=== PATIENT | female | born 1975 | race Caucasian/White ===

== ENCOUNTER 2020-09-16 01:31 | Outpatient (CLI) | payer OTHER, SELFPAY ==
--- NOTE | 2020-09-16 | DI.MRI_ITS ---
Exam(s) MR LUMBAR SPINE WO EXAM: MR LUMBAR SPINE WO CLINICAL HISTORY: LT SIDED SI AND BACK PAIN WITH RADICULOPATHY,FAILED PT,PREVIOUS BACK SURGER. TECHNIQUE: Multiplanar multisequence MRI of the Lumbar spine was performed. COMPARISON: MR MRI - LUMBAR SPINE WO CONTRAST from 02/13/2014 MR MRI - LUMBAR SPINE WO CONTRAST from 02/13/2014 FINDINGS: There are no plain films of the lumbar spine available time this MRI interpretation and therefore 5 l umbar vertebrae are presumed. Conus medullaris is at normal level. There is no evidence of conus mass nor subjacent clumping of in trathecal nerve roots to suggest arachnoiditis. The distal thecal sac appears unremarkable.There is no evidence of Tarlov intrasacral cysts nor other significant findings within the sacral canal Bones:There are no fractures nor ominous osseous lesions in the lumbar vertebral bodies and visualize d sacrum. With respect to the individual levels... T12-L1: Unremarkable L1-2: Normal disc height and signal. No disc herniation nor central canal stenosis.No foraminal steno sis L2-3: Normal disc height. No disc herniation nor central canal stenosis.No foraminal stenosis.No face t arthropathy. L3-4: Normal disc height. No disc herniation or central canal stenosis.No foraminal stenosis.No face t arthropathy. L4-5: Normal disc height and signal. No disc herniation or central canal stenosis. No foraminal levon nosis. No significant facet arthropathy. L5-S1: This level exhibits mild-moderate disc space narrowing. There is annular bulging and a superi mposed prominent disc protrusion in the left lateral recess which extends posteriorly 10 millimeters and is approximately 12 millimeters wide and measures 19 millimeters craniocaudal. Extends a few mil limeters below the disc space level. On the sagittal images there is mild foraminal stenosis on the left side at this level but this is mostly related to the disc height loss, more so than extension of the herniated disc into the exiting neural foramen. Lesser amount of foraminal narrowing is noted o n the opposite-right side. Minimal facet degenerative changes. No ligamentum flavum hypertrophy. T here is no prominent laminectomy defect at this level evident in this patient apparently had prior james rgery. Soft tissues: paraspinal soft tissues appear unremarkable. IMPRESSION: 1. The main findings here are at the L5-S1 level. The disc protrusion previously present centrally a nd slightly left of center is smaller but there is now a prominent 10 x 12 x 19 millimeter finding in the left lateral recess which has the appearance of a new disc herniation, occupying the entire left lateral recess but without prominent entrance into the ipsilateral exiting neural foramen. There ar e mild degenerative changes in the left facet joint at this level. Opposite-right facet appears unre markable. There is some mild vertical foraminal stenosis evident at this level bilaterally due to th e disc height loss. 2. All the other disc spaces above this level exhibit normal height and hydration signal no evidence of other disc herniation and no evidence of central nor foraminal stenosis at any of the other levels in the lumbosacral spinal column. 3. No osseous lesions. DATA REPOSITORY:
== END 2020-09-16 01:51 ==
PROVIDERS: PCP Registered Nurse; Visit Provider Registered Nurse
DX: M51.17 Intervertebral disc disorders with radiculopathy, lumbosacral region (principal); M47.27 Other spondylosis with radiculopathy, lumbosacral region; M48.07 Spinal stenosis, lumbosacral region; Z98.890 Other specified postprocedural states
CPT/HCPCS: 72148

== ENCOUNTER 2021-04-02 12:10 | Emergency (ER) | payer OTHER, SELFPAY ==
[2021-04-02 12:27] VITALS: BP 118/75; PULSE 72; RESP 16; TEMP 36.2; O2SAT 99
--- NOTE | 2021-04-02 13:55 | ED.GENADUL_ITS ---
Discharge Plan Disposition Patient Disposition: HOME Condition: Improving Discharge Details Clinical Impression: Laceration of thumb Primary Care Provider: Liz Castillo ED Provider: Kenyon Woodward Home Meds and New Rx's Prescriptions: New amoxicillin-pot clavulanate [Augmentin] 875-125 mg tablet 1 tab PO BID 5 Days Qty: 10 RF: 0 Continued pregabalin [Lyrica] 50 mg capsule 75 mg PO BID RF: 0 cyclobenzaprine 5 mg tablet 5 - 10 mg PO PRN PRNRF: 0 multivitamin Tablet 1 tab PO DAILY RF: 0 levothyroxine 150 mcg capsule 150 mcg PO DAILY RF: 0 diclofenac sodium 100 mg tablet extended release 24 hr 100 mg PO HS RF: 0 tramadol 50 mg Tablet 50 mg PO BID PRNRF: 0 Discharge Instructions Instructions: Laceration (ED) Additional Instructions: Watch for any signs of infection and return immediately to the emergency department if these occur. Otherwise keep dressing in place for the next 24-48 hours and then keep wound clean and dry. Return to the emergency department in 7-10 days for suture removal. while on NSAIDs if you have any signs of abnormal bruising, bleeding, severe heartburn/stomach pain, vomiting blood or black tarry stools please stop medication immediately. Stand Alone Forms: Work Release Medical Decision Making Patient presenting to the emergency department for chief complaint of laceration to left thumb. 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 She states minor abrasions to middle finger and significant laceration to thumb. Physical exam shows a 2.5 cm laceration to the radial aspect of the left thumb. Sensation flexion extension and full range of motion are noted. Other digit are normal and intact except for abrasion to middle finger. Please see procedure note for It was unremarkable. Discussed monitoring wound for any signs of infection but given that this was a human bite patient placed on Augmentin. Tetanus was updated due to patient stating that she believes she has not had a tetanus shot in the last 5 years. After discussion of diagnosis and plan of care patient has no further needs, questions, or concerns and states clear understanding to return to the emergency department for any worsening symptoms. HPI General Mode of arrival: ambulatory . Date/Time Provider Initiated Documentation: 04/02/21 12:25 . Limitations to Documentation: no limitations . Information obtained by: patient . History of Present Illness 45 year old F presents to the emergency department with the chief complaint of Prior to arrival at work patient was bitten by autistic child, described as moderate, with intensity rated at 6. Quality is described as aching, and is localized to the left and upper extremity. Patient reports no radiation. Patient started experiencing this minute(s) (30) and it has been constant. No relieving factors improve symptom(s), Movement worsens symptoms . Patient notes no other symptoms.. Patient did receive the following treatments prior to arrival, none Related Data Home Medications Medication Instructions Recorded Confirmed cyclobenzaprine 5 mg tablet 5 - 10 mg PO PRN PRN tab 01/13/21 04/02/21 levothyroxine 150 mcg capsule 150 mcg PO DAILY 01/13/21 04/02/21 multivitamin 1 tab PO DAILY 01/13/21 04/02/21 pregabalin 50 mg capsule 75 mg PO BID 01/13/21 04/02/21 amoxicillin-pot clavulanate 1 tab PO BID 5 Days #10 tab 04/02/21 [Augmentin] diclofenac sodium 100 mg PO HS 04/02/21 04/02/21 tramadol 50 mg PO BID PRN 04/02/21 04/02/21 Previous Rx's Medication Instructions Recorded amoxicillin-pot clavulanate 1 tab PO BID 5 Days #10 tab 04/02/21 [Augmentin] Allergies Allergy/AdvReac Type Severity Reaction Status Date / Time No Known Allergies Allergy Verified 04/02/21 12:31 General Stated Complaint: Laceration RICHELLE: 3 Review of Systems Cardiovascular Cardiovascular: Denies syncope and Denies lightheadedness Musculoskeletal Musculoskeletal: Denies deformity, Denies limited range of motion and Denies numbness Integumentary/Breasts Skin/Breast: Reports as per HPI Neurologic Neurologic: Denies syncope, Denies numbness and Denies paresthesias Psychiatric Psychiatric: Reports anxiety PFSH All Active Problems Laceration of thumb (Acute) Medical History Back pain, lumbosacral Encounter for well adult exam with abnormal findings Hypothyroid Lumbar disc herniation with radiculopathy Vitamin D deficiency Surgical History H/O discectomy (~2014) at [facility] () H/O tubal ligation (~2005) Family History Maternal Grandmother Diabetes Cancer breast cancer Thyroid disorder Paternal Grandmother Thyroid disorder Osteoarthritis Rheumatoid arthritis Stroke Mother Thyroid disorder Social History Smoking/Tobacco Use Status: Former Tobacco Use Smoking risk assessment performed?: Yes Alcohol Intake: never Drug use: Never Substance use type: does not use Do you feel safe at home: Yes Do you feel safe in your relationship?: Yes Exam Const General: cooperative and no acute distress Orientation: alert, awake and oriented x3 Limitations: mental status not altered Resp Effort & Inspection: normal respiratory effort and able to speak in complete sentences Cardio Rate: regular rate Rhythm: regular rhythm Neuro General: patient alert, patient awake, patient oriented x3, gait normal, tone normal, moves all extremities, normal light touch, pain and propioception and no focal motor deficits Motor: no movement abnormalities noted Sensory Exam: no sensory deficits noted Extrem General: normal exam except as noted Left upper extremity: hand Details: laceration thumb radial aspect central Details: linear, irregular, actively bleeding, involving subcutaneous tissue, with motor nerve function intact and with sensation intact Course Vital Signs Vital signs: Vital Signs Temperature 36.2 C L 04/02/21 12:27 Pulse 72 04/02/21 12:27 Respiratory Rate 16 04/02/21 12:27 Blood Pressure 118/75 04/02/21 12:27 Pulse Oximetry 99 04/02/21 12:27 Temperature 36.2 C L 04/02/21 12:27 Temperature Source Skin 04/02/21 12:27 Pulse 72 04/02/21 12:27 Respiratory Rate 16 04/02/21 12:27 Respiratory Effort 04/02/21 12:32 Blood Pressure 118/75 04/02/21 12:27 Blood Pressure Position Sitting 04/02/21 12:27 Pulse Oximetry 99 04/02/21 12:27 Oxygen Delivery Method Room Air 04/02/21 12:27 Oxygen Flow Rate 0 04/02/21 12:27 Pain Level 6 04/02/21 12:57 Procedures Laceration Laceration 1: Site: hand Side (If applicable): left Size (cm): 2.5 Description: linear Depth: simple, single layer Local Anesthetic: Lidocaine 1% Amount of anesthesia used (mL): 4 Pre-repair: wound explored, irrigated extensively and deep structures intact Skin layer closed with: other (prolene) Size (cm): 4-0 Number of sutures: 3 Technique: simple, interrupted
[2021-04-02] MEDS: Amoxicillin 875/Clav. 125 TAB PO (13:56)
[2021-04-02 14:22] VITALS: BP 118/75; PULSE 72; RESP 16; TEMP 36.2; O2SAT 99
== END 2021-04-02 14:30 | disposition home or self-care (01) ==
PROVIDERS: Emergency Provider Nurse Practitioner Family; PCP Registered Nurse
DX: S61.012A Laceration without foreign body of left thumb without damage to nail, initial encounter (principal); W50.3XXA Accidental bite by another person, initial encounter
CPT/HCPCS: 12001; 90471

== ENCOUNTER → 2021-10-04 00:57 | Outpatient (CLI) | payer OTHER, SELFPAY ==
--- NOTE | 2021-10-04 | DI.RAD_ITS ---
Exam(s) XR LUMBAR SPINE 1V ONLY EXAM: XR LUMBAR SPINE 1V ONLY CLINICAL HISTORY: LUMBAR DISC HERNIATION, M51.26, S/P LUMBAR FUSION, Z98.1 TECHNIQUE: COMPARISON: No exams were available for comparison FINDINGS: Two views were obtained. There are Cole rods in place at the L5-S1 level. These appear well s eated, lateral views only were obtained. There is loss of disc height at L5-S1. Otherwise intervert ebral disc spaces are well maintained. No other significant focal bony defect seen. IMPRESSION: RADIATION DOSE DELIVERED: Total DLP
== END ==
PROVIDERS: PCP Registered Nurse; Visit Provider Physician Assistant Medical
DX: Z98.1 Arthrodesis status (principal)
CPT/HCPCS: 72020

== ENCOUNTER → 2021-10-26 01:31 | Outpatient (CLI) | payer OTHER, SELFPAY ==
--- NOTE | 2021-10-26 06:45 | DI.MRI_ITS ---
Exam(s) MR ANGIO BRAIN WO EXAM: MR ANGIO BRAIN WO CLINICAL HISTORY: pulsatile tinnitus.RT SIDED, H93.11. TECHNIQUE: Multiplanar multisequence MRI was performed. COMPARISON: No exams were available for comparison FINDINGS: MR angiography of the brain was performed utilizing 3D [id number] imaging. T2 weighted and FLAIR imaging of the entire brain were also obtained. No significant signal abnormality identified in the brain. The orbital and temporal bone structures appear intact. Ventricular system is normal in appearance. The internal carotid, vertebral, and basilar arteries intracranially have an unremarkable appearance with typical flow artifact noted. No evidence of aneurysm, dissection, or stenosis. The anterior, middle, and posterior cerebral arteries bilaterally are unremarkable in appearance, no evidence of aneurysm, dissection, or stenosis, major branch vessels appear intact. Note is made of a 2 x 3 millimeter vascular structure at the level of the anterior communicating chaitanya ry, I am uncertain whether this represents a loop of normal vessel or possibly small DONIS aneurysm. A dditional evaluation with catheter angiography is recommended. IMPRESSION: Variant loop vessel versus small aneurysm at anterior communicating artery. Additional evaluation wi catheter angiography is recommended.. DATA REPOSITORY:
== END ==
PROVIDERS: PCP Registered Nurse; Visit Provider Registered Nurse Maternal Newborn
DX: H93.11 Tinnitus, right ear (principal); R94.02 Abnormal brain scan
CPT/HCPCS: 70544

== ENCOUNTER → 2021-11-16 01:42 | Outpatient (CLI) | payer SELFPAY ==
--- NOTE | 2021-11-16 | DI.RAD_ITS ---
Exam(s) XR LUMBAR SPINE 1V ONLY EXAM: XR LUMBAR SPINE 1V ONLY CLINICAL HISTORY: LUMBAR DISC HERNIATION, S/P LUMBAR FUSION,Z98.1. TECHNIQUE: 2D digital imaging was performed. Five views. COMPARISON: No exams were available for comparison FINDINGS: Posterior fusion hardware is again noted at the L5-S1 level, unchanged. No fracture. There is stabl e moderate narrowing of the L5-S1 disc space. The remaining disc spaces are well maintained. The ve rtebral bodies are normal in height. The alignment appears normal. IMPRESSION: Stable posterior fusion hardware at L5-S1. DATA REPOSITORY: RADIATION DOSE DELIVERED:
== END ==
PROVIDERS: PCP Registered Nurse; Visit Provider Neurological Surgery
DX: Z98.1 Arthrodesis status (principal)
CPT/HCPCS: 72020

== ENCOUNTER 2022-03-21 10:36 | Outpatient (CLI) | payer BC, SELFPAY ==
[2022-03-21 11:10] VITALS: BP 118/82; PULSE 89; RESP 16; TEMP 36.8; O2SAT 97
[2022-03-21 13:13] VITALS: BP 107/78; PULSE 82; RESP 18; TEMP 36.8; O2SAT 98
--- NOTE | 2022-03-21 13:19 | W.ANESPROC ---
Lumbar Puncture Date Performed: 03/21/22 Procedure Time: 13:00 Requesting Provider: Keyana Mora Procedure Location: Day Surgery Unit Standard Monitors Applied: None Used Patient Position: Left Lateral Decubitus Timeout Performed: Yes Sedation Given (Indicate Dose Given): No Sedation given Patient Mental Status: Awake Sterility: Hand Hygiene, Surgical Cap, Surgical Mask, Sterile Gloves, Sterile Drape/Sheet, Sterile Gown and Chlorhexidine Placement Site: L3-L4 Interspace Spinal Needle Type: Colleen 22 Gauge Needle Length: 3.5 Inch Lumbar Puncture Procedure: Site Prepped and 1% Lidocaine to skin and subcutaneous tissue with 25G needle Ultrasound: Not Used Opening CSF Pressure (cmH2O): 25 Closing CSF Pressure (cmH2O): 17 Paresthesia: None Number of Previous Attempts by Other Providers: 0 Number of Attempts (See previous attempts in note section): 1 Procedure Tolerated: No Complications Procedure Outcome: Successful Procedure Comment:: Risks of procedure explained, denies bleeding disorders or use of anticoagulation. She was very close to leaving, expressing she is very uncomfortable with the idea of a needle in her back. It was explained that she is 100% welcome to leave and that this is her choice, she can be rescheduled in the future potentially with MKO anxiolysis if needed. After some time, she agreed to proceed, but it was restated that she is welcome to abandon the procedure at any point. Very jumpy with local on skin, stating zinging. Zinging continued sporadically with both local needle in SQ tissues down to CSF. Closing pressure between 17-20 (large air bubble that would not clear, top of main fluid column ~17, top of small fluid column on top of air bubble 20). ~ 7 mL collected in total. Performed By: Harshal Rodriguez
[2022-03-21 13:50] VITALS: BP 112/79; PULSE 71; RESP 16; O2SAT 98
[2022-03-21 13:55] LABS: Glucose (CSF) 57 mg/dL (40-70)
[2022-03-21 13:57] LABS: Total Protein (CSF) 41 mg/dL (15-45)
[2022-03-21 14:07] LABS: Clarity Clear; RBC 0 /mm3 (0-5); Tube # 4; WBC 0 /uL (0-5); Xanthochromia Absent
== END 2022-03-21 14:10 | disposition home or self-care (01) ==
PROVIDERS: Psychiatry & Neurology Neurology; PCP Registered Nurse; Visit Provider Nurse Anesthetist, Certified Registered
PROC: 009U3ZZ Drainage of Spinal Canal, Percutaneous Approach (ICD-10-PCS; CPT 62270; principal; 2022-03-21 11:30)
DX: H93.A1 Pulsatile tinnitus, right ear (principal); R51.9 Headache, unspecified
CPT/HCPCS: 82945; 89050; 89051; 84157; 87070; 87205

== ENCOUNTER 2022-05-24 01:19 | Outpatient (CLI) | payer BC, SELFPAY ==
--- NOTE | 2022-05-24 07:30 | DI.MRI_ITS ---
Exam(s) MR BRAIN WO/W EXAM: MR BRAIN WO/W CLINICAL HISTORY: Punctate enhancement on prior MRI Lparietal cortex,r909.89 TECHNIQUE: Multiplanar multisequence MRI of the brain was performed. CONTRAST MATERIAL: IV Contrast: 13 mL of Dotarem contrast administered. COMPARISON: MR MRI TEMPORAL BONE/IAC LEB from 02/04/2022 FINDINGS: VENTRICLES AND EXTRA AXIAL SPACES: Normal in size and morphology for the patient's age. HEMORRHAGE: None. CEREBRAL PARENCHYMA: No focus of restricted diffusion to suggest acute infarct. No space-occupying le tonie identified. MIDLINE SHIFT: None. BRAINSTEM/CEREBELLUM: Normal. CALVARIUM: Normal. ENHANCEMENT: No suspicious enhancement identified. The previously identified focus of enhancement in the posterior left parietal region is not visualized on the current examination this may have represe nted vascular enhancement. VISUALIZED PARANASAL SINUSES/MASTOIDS: Clear. [place]: Normal flow void. PITUITARY GLAND: Note is again made of an empty sella. OTHER FINDINGS: IMPRESSION: 1. The focus of pial/cortical enhancement in the left parietal lobe is not visualized on the current examination. It may represent a vascular enhancement. 2. No intracranial mass or enhancing lesion. DATA REPOSITORY:
== END 2022-05-24 01:39 ==
LOC: DI 01:19
PROVIDERS: PCP Registered Nurse; Visit Provider Psychiatry & Neurology Neurology
DX: R90.89 Other abnormal findings on diagnostic imaging of central nervous system (principal); G44.52 New daily persistent headache (NDPH); H93.A1 Pulsatile tinnitus, right ear
CPT/HCPCS: 70553

== ENCOUNTER 2022-06-23 02:32 | Outpatient (CLI) | payer BC, SELFPAY ==
--- NOTE | 2022-06-23 15:31 | DI.MAMMO_ITS ---
Exam(s) MAMMO SCREENING EXAM: MAMMO SCREENING CLINICAL HISTORY: SCREENING, Z12.31 TECHNIQUE: Mammograms were interpreted according to the usual protocol including computer analysis w [employer] CAD system, tomosynthesis and C-view imaging. COMPARISON: None. Baseline examination. FINDINGS: The breasts are composed of heterogeneously dense fibroglandular densities, Breast Density category C . No suspicious masses or suspicious microcalcifications are seen. No skin thickening or abnormal axillary lymph nodes are seen. IMPRESSION: BI-RADS Category 1, Negative mammogram. Yearly screening mammography is recommended. Breast Density Category C, heterogeneously Dense. The mammogram demonstrates the patient's breast tissue is dense. Dense breast tissue is very common a nd is not abnormal but dense breast tissue can make it harder to find cancer on a mammogram. Also, de nse breast tissue may increase breast cancer risk. This information about the result of the mammogram report was provided to the patient to raise their awareness. Use this report when you speak with the patient about their risks for breast cancer, which includes their family history. At that time, you may recommend additional screening tests (Ultrasound or MRI) as they might be useful based on their r isk. A negative radiographic report should not delay biopsy if a dominant or clinically suspicious mass is present. Up to ten percent of cancers are not identified on mammography. A negative report may reinforce clinical impression. Adenosis and dense breasts may obscure an underlying neoplasm. False positive reports average 6 to 10%.
== END 2022-06-23 02:52 ==
LOC: DI 02:32
PROVIDERS: PCP Registered Nurse; Visit Provider Registered Nurse
DX: Z12.31 Encounter for screening mammogram for malignant neoplasm of breast (principal)
CPT/HCPCS: 77063; 77067

== ENCOUNTER → 2022-11-30 00:57 | Outpatient (CLI) | payer BC, SELFPAY ==
--- NOTE | 2022-11-30 | DI.RAD_ITS ---
Exam(s) XR HIP LT AP LAT ONLY EXAM: XR HIP LT AP LAT ONLY CLINICAL HISTORY: LT LOW BACK AND SI PAIN. TECHNIQUE: 2D digital imaging was performed of the left hip. Two views were obtained. AP and later al views were obtained. COMPARISON: No exams were available for comparison FINDINGS: BONES: No acute fracture is present. No bony destructive lesion is seen. JOINTS: No dislocation present. Posterior spinal surgery is seen in the lower lumbar spine. The left sacroiliac joint is unremarkable. SOFT TISSUE: Normal. IMPRESSION: Unremarkable radiographs of the left hip. DATA REPOSITORY: RADIATION DOSE DELIVERED:
== END ==
PROVIDERS: PCP Registered Nurse; Visit Provider Chiropractor
DX: M54.59 Other low back pain (principal)
CPT/HCPCS: 73502

== ENCOUNTER → 2023-07-13 00:37 | Outpatient (CLI) | payer BC, SELFPAY ==
--- NOTE | 2023-07-13 | DI.MRI_ITS ---
Exam(s) MR VENOUS BRAIN WO/W EXAM: MR VENOUS BRAIN WO/W CLINICAL HISTORY: PULSATILE TINNITUS, H93.A9. TECHNIQUE: Multiplanar multisequence MRV of the brain was performed. IV Contrast: mL of Magnevist contrast administered. COMPARISON: MR MR BRAIN WO/W from 05/24/2022 FINDINGS: Superior sagittal sinus: Patent. Straight sinus: Patent. Transverse sinuses: Patent. Stent noted in right transverse sinus. Flow is seen both proximally and distally to the stent. Sigmoid sinuses: Patent. Jugular veins: Patent. IMPRESSION: The right transverse sinus stent appears patent. No evidence of venous thrombosis of major venous s inuses. DATA REPOSITORY:
[2023-07-13] MEDS: Normal Saline - Diluent 50 ML VIAL 25 ML IJ (11:35)
[2023-07-13] MEDS: Gadoterate meglumine 20 ML VIAL 14 ML IVP (11:36)
--- NOTE | 2023-07-13 18:36 | DI.VRAD_ITS ---
PROCEDURE INFORMATION: Exam: MRA Head Without and With Contrast, Venography Exam date and time: 07/13/2023 11:30 AM Age: 47 years old Clinical indication: Other: Pulsatile tinnitus, ; additional info: 14 ml dotarem iv. Stent placed 06/29/22 into right transverse venous sinus-report and device information scanned into pacs. TECHNIQUE: Imaging protocol: Magnetic resonance angiography of the head without and with contrast. Angiographic sequences such as [id number]-sp-[id number] (TOF) or Time-resolved contrast techniques were performed. Exam focused on the veins. Contrast material: DOTAREM; Contrast volume: 14 ml; Contrast route: INTRAVENOUS (IV); COMPARISON: MR ANGIO BRAIN WO 10/26/2021 7:46 AM FINDINGS: Superior sagittal sinus: Patent. Straight sinus: Patent. Transverse sinuses: Hypointensity involving the lateral segment of the dominant right transverse sinus could relate to a vascular stent with normal flow seen in the right transverse sinus both proximal and distal to this level. Flow is also identified within the smaller left transverse sinus without occlusion. Sigmoid sinuses: Patent bilaterally. Internal jugular veins: Visualized segments appear patent bilaterally. IMPRESSION: 1. Hypointensity involving the lateral segment of the dominant right transverse sinus could relate to a vascular stent with normal flow seen in the right transverse sinus both proximal and distal to this level. Correlation with clinical data is necessary. 2. No other evidence of thrombosis involving the remaining major dural venous sinuses. Dictated and Authenticated by: Fabien Maya MD. Ordering:ANNAMARIA Griffin MD
== END ==
PROVIDERS: PCP Registered Nurse; Visit Provider Nurse Practitioner Family
DX: H93.A2 Pulsatile tinnitus, left ear (principal)
CPT/HCPCS: 70546

== ENCOUNTER 2024-04-24 01:28 | Outpatient (CLI) | payer OTHER, SELFPAY ==
--- NOTE | 2024-04-24 15:11 | DI.MAMMO_ITS ---
Exam(s) MAMMO SCREENING EXAM: MAMMO SCREENING CLINICAL HISTORY: Screening, Z12.31 TECHNIQUE: Bilateral full field digital CC and MLO mammographic images were obtained with 3D tomosyn thesis and utilizing computer aided detection (CAD). COMPARISON: Available for comparison. FINDINGS: Masses/Architectural Distortion: None seen. Microcalcifications: No suspicious pleomorphic-type are seen. Skin Thickening/Nipple Retraction: None. IMPRESSION: 1. No significant interval change with no specific features of malignancy noted. 2. Unless there is more urgent need, screening mammography is recommended, as per [employer] guidelines. BI-RADS Category 1 - Negative Breast Density - Category C - Heterogeneously dense Breast density category C or D implies that the patient has dense breast tissue. Dense breast tissue is very common and is not abnormal but dense breast tissue can make it harder to find cancer on a ma mmogram. Also, dense breast tissue may increase their breast cancer risk. This information about the result of the mammogram report was provided to the patient to raise their awareness. Use this report when you speak with the patient about their risks for breast cancer, which includes their family hist ory. At that time, you may recommend for more screening tests (Ultrasound or MRI) as they might be us eful based on their risk. A negative radiographic report should not delay biopsy if a dominant or clinically suspicious mass is present. Up to ten percent of cancers are not identified on mammography. A negative report may reinforce clinical impression. Adenosis and dense breasts may obscure an underlying neoplasm. False positive reports average 6 to 10%. Patient will receive a letter notifying them of these results.
== END 2024-04-24 01:48 ==
LOC: DI 01:28
PROVIDERS: PCP Registered Nurse; Visit Provider Registered Nurse
DX: Z12.31 Encounter for screening mammogram for malignant neoplasm of breast (principal); R92.323 Mammographic fibroglandular density, bilateral breasts
CPT/HCPCS: 77063; 77067